=== PATIENT | female | born 1980 | race Caucasian/White ===

== ENCOUNTER 2021-04-14 10:34 | Emergency (ER) | payer OTHER ==
[2021-04-14 12:29] LABS: Lavender RECEIVED; Red RECEIVED
[2021-04-14 14:41] LABS: HIV (1/2) Antibody/Antigen Non-Reactive (NonReactive); HIV 1/2 INDEX 0.13 S/CO (<1.00)
[2021-04-14 14:49] LABS: Hep C IgG Ab Non-Reactive (NonReactive)
[2021-04-14 15:41] LABS: Hep B Surf AB Reactive (NonReactive)
[2021-04-14 16:23] LABS: HBSAB Concentration 20.84 mIU/mL
== END 2021-04-14 10:57 | disposition home or self-care (01) ==
LOC: CSHERS 10:34
DX: S61.237A Puncture wound without foreign body of left little finger without damage to nail, initial encounter (principal); W46.1XXA Contact with contaminated hypodermic needle, initial encounter
CPT/HCPCS: 36415; 86706; 86803; 87389; 99283

== ENCOUNTER 2021-10-21 15:04 | Outpatient (CLI) | payer BC | END 2021-10-21 15:05 | disposition home or self-care (01) | LOC: CSHMAMMO 15:04 | PROVIDERS: ATTEND Family Medicine Sports Medicine | DX: Z12.31 Encounter for screening mammogram for malignant neoplasm of breast (principal) | CPT/HCPCS: 77063; 77067 ==

== ENCOUNTER 2023-06-10 15:01 | Outpatient (CLI) | payer OTHER | END 2023-06-10 15:02 | disposition home or self-care (01) | LOC: CSHMAMMO 15:01 | PROVIDERS: ATTEND Family Medicine Sports Medicine | DX: Z12.31 Encounter for screening mammogram for malignant neoplasm of breast (principal) | CPT/HCPCS: 77063; 77067 ==

== ENCOUNTER 2024-06-12 14:12 | Outpatient (CLI) | payer BC | END 2024-06-12 14:13 | disposition home or self-care (01) | LOC: CSHMAMMO 14:12 | PROVIDERS: ATTEND Family Medicine Sports Medicine | DX: Z12.31 Encounter for screening mammogram for malignant neoplasm of breast (principal) | CPT/HCPCS: 77063; 77067 ==